=== PATIENT | male | born 1970 | race Caucasian/White ===

== ENCOUNTER 2023-06-07 07:38 | Outpatient (OUT) | payer OTHER, SELFPAY ==
--- NOTE | 2023-06-07 07:58 | XR_ITS ---
The [address] [address] Patient Name: DEZ CELAYA MRN: [id number] date: 1970 Sex: M Assigned Patient Location: US Current Patient Location: US Accession/Order Number: [id number] Exam Date: 06/07/2023 08:00 Report Date: 06/07/2023 08:34 At the request of: CLEO PICHARDO Procedure: XR chest 2V EXAM: Chest x-ray HISTORY: . History Of Testicular Cancer, History Of Renal Cell Cancer . COMPARISON: 04/05/2022 TECHNIQUE: Frontal and lateral chest FINDINGS: Heart and vascularity are unremarkable. Lungs are free of focal infiltrates. Nipple shadows overlie both lower lung draper. Early spondylosis of the spine is noted. There is accentuation on the normal kyphosis of the thoracic spine. XR/XR chest 2V IMPRESSION: 1 no acute heart or lung disease identified. Nipple shadows are noted overlying both lung draper. 2. Spondylosis of the spine. 3. There is accentuation of the normal kyphosis of the thoracic spine. Electronically authenticated by: ROLAND JOSEPH Date: 06/07/2023 08:34
--- NOTE | 2023-06-07 08:05 | US_ITS ---
The [address] [address] Patient Name: DEZ CELAYA MRN: [id number] date: 1970 Sex: M Assigned Patient Location: US Current Patient Location: Accession/Order Number: [id number] Exam Date: 06/07/2023 08:10 Report Date: 06/08/2023 07:26 At the request of: CLEO PICHARDO Procedure: US renal BI EXAMINATION: US renal BI HISTORY: History Of Renal Cell Cancer Z85.528 COMPARISON: No relevant comparison available. TECHNIQUE: Ultrasound examination was performed of the bladder. FINDINGS: Right Kidney: Contour deformity of the upper pole with an area of hyperechogenicity consistent with partial nephrectomy. No solid cortical mass, hydronephrosis or obstructing nephrolithiasis. The cortex measures 1.5 cm. Height: 4.1 cm Length: 12.3 cm Width: 5.9 cm Left Kidney: Normal in size, contour and echotexture. No solid cortical mass, hydronephrosis or obstructing nephrolithiasis Height: 8.4 cm Length: 13.7 cm Width: 6.6 cm Urinary bladder is distended with no wall thickening or mass. The bladder measures 14.0 x 10.9 x 11.0 cm with volume of 1173 mL US/US renal BI IMPRESSION: Contour deformity of hyperechogenicity upper pole right kidney, postsurgical changes from hysterectomy are favored Dilated urinary bladder with a volume of 1173 mL. Electronically authenticated by: ROLAND VELIZ Date: 06/08/2023 07:26
[2023-06-07 08:44] LABS: Basophils Absolute Auto 0.1 10^3/uL (0.0-0.1); Basophils Percent Auto 0.6 % (0.2-2.0); Eosinophils Absolute Auto 0.3 10^3/uL (0.0-0.7); Eosinophils Percent Auto 3.6 % (0.9-7.0); Hematocrit 44.3 % (42.0-54.0); Immature Granulocytes Abs Auto 0.02 10^3/uL (0.00-0.03); Immature Granulocytes Pct Auto 0.3 % (0.0-0.5); Lymphocytes Absolute Auto 1.6 10^3/uL (1.2-3.8); Lymphocytes Percent Auto 21.1 % (20.5-60.0); Mean Corpuscular HGB Conc 33.9 g/dL (29.9-35.2); Mean Corpuscular Volume 91.5 fL (80.0-94.0); Mean Platelet Volume 9.2 fL (9.5-13.5); Monocytes Absolute Auto 0.8 10^3/uL (0.3-0.8); Monocytes Percent Auto 10.2 % (1.7-12.0); Neutrophils Percent Auto 64.2 % (43.0-75.0); Platelet Count 300 10^3/uL (150-450); Red Blood Count 4.84 10^6/uL (4.70-6.10); White Blood Count 7.8 10^3/uL (4.0-11.0)
[2023-06-08 04:07] LABS: Testosterone 292 ng/dL (264-916)
== END 2023-06-07 07:39 | disposition home or self-care (01) ==
LOC: US 07:42
PROVIDERS: PCP Internal Medicine; Visit Provider Urology
DX: E29.1 Testicular hypofunction (principal); Z85.47 Personal history of malignant neoplasm of testis; Z85.528 Personal history of other malignant neoplasm of kidney; Z12.5 Encounter for screening for malignant neoplasm of prostate
CPT/HCPCS: 36415; 71046; 76775; 84403; 85025; G0103

== ENCOUNTER 2025-06-03 06:32 | Outpatient (OUT) | payer OTHER, SELFPAY ==
--- OUTSIDE RECORDS SUMMARY | 2025-06-03 06:36 | XMS_ITS | Encounter Summary ---
Author Organization [employer] s tem Address [facility]-[id number] [address] [place] [address] Care Team Providers Care Clinical Data Specialist Name Role Phone Isrrael Kaufman DO Primary Care Provider [phone] Encounter Details Date Type Department Care Team (Late st Contact Info) Description 04/29/2025 [facility] [address] [facility] [place] [id number] Carlos Chadwick CMA Social History Tobacco Use Types Packs/Day Years Used Date Smoking Tobacco: Former Cigars Q uit: 2012 Smokeless Tobacco: Never Alcohol Use Standard Drinks/Week Comments Yes 0 (1 standard drink = 0.6 oz pur e alcohol) occasional Social Connection and Isolat ion Panel [NHANES] Answer Date Recorded In a typical week, how many times do you talk on the phone with family, friends, or neighbors? More than three times a week 06/21/2022 How often do you get togethe r with friends or relatives? Three times a week 06/21/2022 How often do you attend chur ch or caodaism services? Never 06/21/2022 Do you belong to any clubs o r organizations such as confucianism groups, unions, fraternal or athletic groups, or school groups? No 06/21/2022 How often do you attend meet ings of the clubs or organizations you belong to? Never 06/21/2022 Are you , , di vorced, , never , or living with a partner? Never 06/21/2022 AUDIT-C Answer Date Recorded Q1: How often do you have a drink containing alc ohol? 2-4 times a month 06/21/2022 Q2: How many drinks containi ng alcohol do you have on a typical day when you are drinking? 1 or 2 06/21/2022 Q3: How often do you have si x or more drinks on one occasion? Less than monthly 06/21/2022 Overall Financial Resource Strain (CARDIA) Answe r Date Recorded How hard is it for you to pa y for the very basics like food, housing, medical care, and heating? Not hard at all 08/15/2024 PHQ-2 Answer Date Recorded Total Score 0 05/04/2024 [facility] ional [facility] - Occupational Stress Questionnaire Answer Date Recorded Do you feel stress - tense, restless, nervous, or anxious, or unable to sleep at night because your mind is troubled all the time - these days? Not at all 06/21/2022 Exercise Vital Sign Answer Date Recorde d On average, how many days pe r week do you engage in moderate to strenuous exercise (like a brisk walk)? 2 days 06/21/2022 On average, how many minutes do you engage in exercise at this level? 20 min 06/21/2022 PRAPARE - Transportation Answer Date Re corded In the past 12 months, has l ack of transportation kept you from medical appointments or from getting medications? No 07/28 In the past 12 months, has l ack of transportation kept you from meetings, work, or from getting things needed for daily living? No 08/15/2024 Housing Instability Answer Date Recorde d Are you worried or concerned that in the next two months you may not have stable housing that you own, rent or stay in as a part of a household? No 08/15/2024 Childcare Answer Date Recorded Do problems getting child ca re make it difficult for you to work or study? No 06/21/2022 Employment Answer Date Recorded Do you need help finding a [facility] career center and/or a training program? No 06/21/2022 Hunger Screening Answer Date Recorded Within the past 12 months we worried whether our food would run out before we got money to buy more. Never True 08/15/2024 Within the past 12 months th e food we bought just didn't last and we didn't have money to get more. Never True 08/15/2024 Purpose - Life Answer Date Recorded I have a purpose and direction in my life. Stron gly Agree 06/21/2022 Education Answer Date Recorded What is the highest level of school you have completed or the highest degree you have received? Associate degree: occupational, technical, or vocational program 06/21/2022 Sex and Gender Information Value Date Recorded Sex Assigned at Not on file Legal Sex Male 11:30 AM EDT Gender Identity Not on file Sexual Orientation Not on file documented as of this encounter Miscellaneous Notes * Telephone Encounter - Carlos Chadwick CMA - 04/29/2025 10:06 AM EDT ----- Message from Isrrael Kaufman DO sent at 05/04/2024 3:28 PM EDT ----- IFG/cholesterol recheck documented in this encounter Plan of Treatment Upcoming Encounters Date Type Department Care Team (Late st Contact Info) Description 07/22/2025 1:45 PM EDT Office Visit [facility] Internal Medicine - Family Medicine [address] [place] [address] Isrrael Kaufman DO [address] [place] [address] documented as of this encounter Visit Diagnoses Not on filedocumented in this encounter Additional Health Concerns Assessment Noted Time PHQ-9 Depression Total Score: 0 05/04/20 24 10:28 AM EDT documented as of this encounter Care Teams Clinical Data Specialist Relationship Specialty Start Date End Date Isrrael Kaufman DO [address] [place] [address] PCP - General Internal Medicine 09/25/21 documented as of this encounter
--- OUTSIDE RECORDS SUMMARY | 2025-06-03 06:36 | XMS_ITS | Encounter Summary ---
Author Organization [employer] [facility] tem Address [id number] [address] [place] [address] Care Team Providers Care Ic Design Engineer Name Role Phone Isrrael Kaufman DO Primary Care Provider [phone] Reason for Visit * Reason Comments Med Refill Encounter Details Date Type Department Care Team (Late st Contact Info) Description 04/27/2025 Refill [facility] Internal Medicine - Family Medicine [address] [place] [address] Isrrael Kaufman DO [address] [place] [address] Type 2 diabetes mellitus without complication, without long-term current use of insulin ([facility]) Social History Tobacco Use Types Packs/Day Years [...] often do you attend chur ch or baptism services? Never 06/21/2022 Do you belong to any clubs o r organizations such as gnosticism groups, unions, fraternal or athletic groups, or [...] Answer Date Recorded Total Score 0 05/04/2024 [facility] [place] of Occupat ional Health - Occupational Stress [...] Recorded Do you need help finding a [facility] career center and/or a training program? No [...] on file documented as of this encounter Plan of Treatment Upcoming Encounters Date Type Department Care Team (Late st Contact Info) Description 07/22/2025 1:45 PM EDT Office Visit [facility] Medicine - Family Medicine [address] [place] [address] Isrrael Kaufman DO [address] [place] [address] documented as of this encounter Visit Diagnoses Diagnosis Type 2 diabetes mellitus without complication, without long-term current use of insulin ([facility]) documented in this encounter Additional Health Concerns Assessment Noted Time PHQ-9 Depression Total Score: 0 05/04/20 24 10:28 AM EDT documented as of this encounter Care Teams Ic Design Engineer Relationship Specialty Start Date End Date Isrrael Kaufman DO [address] [place] [address] PCP - General Internal Medicine 09/25/21 documented as of this encounter
--- OUTSIDE RECORDS SUMMARY | 2025-06-03 06:36 | XMS_ITS | Encounter Summary ---
Author Organization [facility] tem Address [id number] [address] [place] [address] Care Team Providers Care Dental Ceramist Name Role Phone Isrrael Kaufman DO Primary Care Provider [phone] Encounter Details Date Type Department Care Team (Late st Contact Info) Description 01/31/2023 Orders Only [facility] Internal Medicine - Family Medicine [address] [place] [address] Isrrael Kaufman DO [address] [place] [address] Type 2 diabetes mellitus without complication, without long-term current use of insulin ([facility]) Social History Tobacco Use Types Packs/Day Years [...] often do you attend chur ch or presybeterian services? Never 06/21/2022 Do you belong to any clubs o r organizations such as presybeterian groups, unions, fraternal or athletic groups, or [...] care, and heating? Not hard at all 06/21/2022 PHQ-2 Answer Date Recorded Total Score 0 11/08/2022 [facility] of Occupat ional Health - Occupational [...] medical appointments or from getting medications? No 05/28 In the past 12 months, has l ack of transportation kept you from meetings, work, or from getting things needed for daily living? No 06/21/2022 Childcare Answer Date Recorded Do problems getting child ca re make it difficult for you to work or study? No 06/21/2022 Employment Answer Date Recorded Do you need help finding a l al career center and/or a training program? No 06/21/2022 Purpose - Life Answer Date Recorded I [...] Internal Medicine - Family Medicine [address] [place] [address] Isrrael Kaufman DO [address] [place] [address] documented as of this encounter Visit Diagnoses Diagnosis Type 2 diabetes mellitus without complication, without long-term current use of insulin ([facility]) documented in this encounter Additional Health Concerns Assessment Noted Time PHQ-9 Depression Total Score: 0 11/08/19 23 1:02 PM EST documented as of this encounter Care Teams Dental Ceramist Relationship Specialty Start Date End Date Isrrael Kaufman DO [address] [place] [address] PCP - General Internal Medicine 09/25/21 documented as of this encounter
--- OUTSIDE RECORDS SUMMARY | 2025-06-03 06:36 | XMS_ITS | Encounter Summary ---
Author Organization [employer] [facility] tem Address [facility]-[id number] [address] [place] [address] Care Team Providers Care Cable Technician Name Role Phone Isrrael Kaufman DO Primary Care Provider [phone] Reason for Visit * Reason Comments Med Change Request Encounter Details Date Type Department Care Team (Late st Contact Info) Description 09/21/2022 Refill [facility] Internal Medicine - Family Medicine [address] [place] [address] Isrrael Kaufman DO [address] [place] [address] Type 2 diabetes mellitus without complication, without long-term current use of insulin ([facility]) Social History Tobacco Use Types Packs/Day Years [...] often do you attend chur ch or orthodoxy services? Never 06/21/2022 Do you belong to any clubs o r organizations such as congregational groups, unions, fraternal or athletic groups, or [...] PHQ-2 Answer Date Recorded Total Score 0 06/21/2022 [facility] of Occupat ional Health - Occupational Stress [...] a purpose and direction in my life. Jeremy gly Agree 06/21/2022 Education Answer Date Recorded [...] encounter Miscellaneous Notes * Telephone Encounter - Isrrael Kaufman DO - 09/21/2022 5:26 PM EST Awaiting prior authorization documented in this encounter Plan of Treatment Upcoming Encounters Date Type Department Care Team (Late st Contact Info) Description 07/22/2025 1:45 PM EDT Office Visit [facility] Internal Medicine - Family Medicine [address] [place] [address] Isrrael Kaufman DO [address] [place] [address] documented as of this encounter Visit Diagnoses Diagnosis Type 2 diabetes mellitus without complication, without long-term current use of insulin ([facility]) documented in this encounter Additional Health Concerns Assessment Noted Time PHQ-9 Depression Total Score: 0 06/21/20 22 12:15 PM EDT documented as of this encounter Care Teams Cable Technician Relationship Specialty Start Date End Date Isrrael Kaufman DO [address] [place] [address] PCP - General Internal Medicine 09/25/21 documented as of this encounter
--- OUTSIDE RECORDS SUMMARY | 2025-06-03 06:36 | XMS_ITS | Clinical Summary ---
Author Organization [facility] [facility] tem Address [id number] [address] [place] [address] Care Team Providers Care Solution Coordinator Name Role Phone Isrrael Kaufman DO Primary Care Provider [phone] Allergies Active Allergy Reactions Criticality Noted Date Comments Amoxicillin-Pot Clavulanate Hives 02/02/20 13 Bee Venom Protein (Honey Bee) Bronchospasm High 08/28 Medications azelastine (ASTELIN) 137 mcg (0.1 %) nasal sprayIndications :Non-seasonal allergic rhinitis, unspecified trigger Administer 1 spray into each nostril in the morning and 1 spray before bedtime. Use in each nostril as directed. 30 mL 2 4 Active rosuvastatin (CRESTOR) 10 mg tabletIndication s:Type 2 diabetes mellitus without complication, without long-term current use of insulin ([facility]) TAKE 1 TABLET (10 MG TOTAL) BY MOUTH IN THE MORNING 90 tablet 1 5 Active Active Problems Problem Noted Date Diagnosed Date Type 2 diabetes mellitus wit hout complication, without long-term current use of insulin 11/08/2022 Polyp of sigmoid colon 01/22/2022 Allergic 12/21/2021 Overview (12/21/2021): bee stings Obesity 12/21/2021 Visual impairment 12/21/2021 Resolved Problems Problem Noted Date Diagnosed Date Resolved Date Colon cancer screening 11/19/202106/15 Encounters Date Type Department Care Team Description 04/29/2025 [facility]phone [facility] [address] [place] [address] Carlos Chadwick CMA 04/27/2025 Refill [facility] Internal Medicine - Family Medicine [address] [place] [address] Isrrael Kaufman, Type 2 diabetes mellitus without complication, without long-term current use of insulin ([facility]) from Last 3 Months Immunizations Immunization Administration Dates Next Due Zoster Vaccine Recombinant 08/17/2024,05/04/2024 Family History Medical History Relation Name Comments Diabetes Father jeanie haro Hypertension Mother yazmin haro Relation Name Status Comments Father jeanie haro Alive Mother yazmin haro Alive Social History Tobacco Use Types Packs/Day Years Used Date Smoking Tobacco: Former Cigars Q uit: 2012 Smokeless Tobacco: Never Tobacco Cessation:Counseling Given: Not Answered Alcohol Use Standard Drinks/Week Comments Yes 0 [...] often do you attend chur ch or muslim services? Never 06/21/2022 Do you belong to any clubs o r organizations such as jew groups, unions, fraternal or athletic groups, or [...] Answer Date Recorded Total Score 0 05/04/2024 [facility] of Occupat ional Health - Occupational [...] Recorded Do you need help finding a [facility] career center and/or a [...] on file Sexual Orientation Not on file Last Filed Vital Signs Vital Sign Reading Time Taken Comments Blood Pressure 124/76 05/04/2024 10:39 AM EDT Pulse 67 05/04/2024 10:28 AM EDT Temperature 36.7 C (98.1 F) 05/04/2024 10:28 AM EDT Respiratory Rate 20 03/14/2023 11:5 1 AM EDT Oxygen Saturation 96% 05/04/2024 10: 28 AM EDT Inhaled Oxygen Concentration - - Weight 83.4 kg (183 lb 12.8 oz) 024 10:28 AM EDT Height 172.7 cm (5' 8 ) 05/04/2024 10:2 8 AM EDT Body Mass Index 27.95 05/04/2024 10:28 AM EDT Plan of Treatment Upcoming Encounters Date Type Department Care Team (Late st Contact Info) Description 07/22/2025 1:45 PM EDT Office Visit [facility] Internal Medicine - Family Medicine [address] [place] [address] Isrrael Kaufman, DO [address] [place] [address] Health Maintenance Due Date Last Done Comments Diabetic Ophthalmology Exam 1970 DTaP,Tdap and Td Vaccines (2 - Td or Tdap) 02/01/2023 02/01/2013 Diabetic Foot Exam 03/14/2024 03/14/2023 COVID-19 Vaccine ( season) 2024 11/11/2021, 04/13/2021, 03/16/2021 Adult BMI Screening 05/04/2025 05/04/2024 Depression Screening 05/04/2025 05/04/2024 Tobacco Screening 05/04/2025 05/04/2024 Influenza Vaccine 05/27/2025 Statin Use: Diabetic 11/02/2025 11/02/2024 Colonoscopy 01/23/2032 01/22/2022, 01/22/2022 Zoster (Shingles) Vaccine Completed 08/17/2024, 05/2024 Medical Devices Not on file Procedures Procedure Name Priority Date/Time Associated Diagnosis Comments PROVATION COLONOSCOPY Routine 01/22/2022 12:56 PM EDT from Last 3 Months or Most Recently Relevant to Health Maintenance Results * Colonoscopy Report (01/22/2022 12:56 PM EDT) Narrative SYSTEMGENERATED, DOCUMENTATION - 01/22/2022 12:56 PM EDT This order has been auto-finalized for image and report archival in PACs. *For full report details, please reach out to your physician. Effective 02/10/21 this image will be visible to you in MyChart.* Isrrael Kaufman DO IMG OR IMG ORDERABLES Final Resu lt from Last 3 Months or Most Recently Relevant to Health Maintenance Insurance [employer] Care Teams Solution Coordinator Relationship Specialty Start Date End Date Isrrael Kaufman DO [address] [place] [address] PCP - General Internal Medicine 09/25/21
--- OUTSIDE RECORDS SUMMARY | 2025-06-03 06:36 | XMS_ITS | Encounter Summary ---
Author Organization [employer] tem Address [facility]-[id number] [address] [place] [address] Care Team Providers Care Blackener Name Role Phone Isrrael Kaufman DO Primary Care Provider [phone] Reason for Visit * Reason Onset Date Comments Med Refill 09/10/2022 Encounter Details Date Type Department Care Team (Late st Contact Info) Description 09/10/2022 [facility] [address] [place] [address] Jennifer Sandy CMA Type 2 diabetes mellitus without complication, without long-term current use of insulin ([facility]) Social History Tobacco Use Types Packs/Day Years [...] often do you attend chur ch or zoroastrian services? Never 06/21/2022 Do you belong to any clubs o r organizations such as restorationism groups, unions, fraternal or athletic groups, or [...] Answer Date Recorded Total Score 0 06/21/2022 [facility] [place] of Occupat ional Health - Occupational Stress [...] Do you need help finding a l ocal career center and/or a training program? No 06/21/2022 Purpose - Life Answer Date Recorded I have a purpose and direction in my life. Jeremy johnson Agree 06/21/2022 Education Answer Date Recorded What [...] Internal Medicine - Family Medicine [address] [place] [address] Isrrael Kaufman DO [address] [place] [address] documented as of this encounter Visit Diagnoses Diagnosis Type 2 diabetes mellitus without complication, without long-term current use of insulin ([facility]) documented in this encounter Additional Health Concerns Assessment Noted Time PHQ-9 Depression Total Score: 0 06/21/20 22 12:15 PM EDT documented as of this encounter Care Teams Blackener Relationship Specialty Start Date End Date Isrrael Kaufman DO [address] [place] [address] PCP - General Internal Medicine 09/25/21 documented as of this encounter
--- OUTSIDE RECORDS SUMMARY | 2025-06-03 06:36 | XMS_ITS | Encounter Summary ---
Author Organization [employer] [facility] tem Address [facility]-[id number] [address] [place] [address] Care Team Providers Care Line Fixer Name Role Phone Isrrael Kaufman DO Primary Care Provider [phone] Encounter Details Date Type Department Care Team (Late st Contact Info) Description 11/01/2022 Telephone [facility] Internal Medicine - Family Medicine [address] [place] [id number] Nighat Ruby CMA Social History Tobacco Use Types Packs/Day [...] often do you attend chur ch or rastafari services? Never 06/21/2022 Do you belong to any clubs o r organizations such as orthodox groups, unions, fraternal or athletic groups, or [...] Answer Date Recorded Total Score 0 06/21/2022 [facility] of Occupat ional Health - Occupational Stress [...] Recorded Do you need help finding a [facility] and/or a training program? No [...] encounter Miscellaneous Notes * Telephone Encounter - Nighat Ruby CMA - 11/01/2022 8:32 AM EST Pt has appt coming up and thought he had lab work due but went to hospital and they had no orders. [place] of [place], so he will not be back in time to get labs done. Can we do at appointment,or should we move appt out further and order labs? * Telephone Encounter - Isrrael Kaufman DO - 11/01/2022 8:32 AM EST We will just do them at the appointment. However, whoever schedule the appointment needs to make sure they look the providers know that we need to send in orders ahead of time. * Telephone Encounter - Sade Weems - 11/01/2022 8:32 AM EST I scheduled this appt 08-02-22 when he was leaving after seeing you for his diabetic check up. Are you able to put in orders that day for a future date? I didn't think you could. So, I normally tell the patient to call a week ahead of the appt to request lab orders. I even write it on their paper that has the appt on it. I don't know what more I can do. documented in this encounter Plan of Treatment Upcoming Encounters Date Type Department Care Team (Late st Contact Info) Description 07/22/2025 1:45 PM EDT Office Visit [facility] Internal Medicine - Family Medicine [address] [place] [address] Isrrael Kaufman DO [address] [facility] [address] documented as of this encounter Visit Diagnoses Not on filedocumented in this encounter Additional Health Concerns Assessment Noted Time PHQ-9 Depression Total Score: 0 06/21/20 22 12:15 PM EDT documented as of this encounter Care Teams Line Fixer Relationship Specialty Start Date End Date Isrrael Kaufman DO [address] [place] [address] PCP - General Internal Medicine 09/25/21 documented as of this encounter
--- OUTSIDE RECORDS SUMMARY | 2025-06-03 06:36 | XMS_ITS | Encounter Summary ---
Author Organization [employer] [facility] tem Address [facility] [id number] [address] [place] [address] Care Team Providers Care Construction Accountant Name Role Phone Isrrael Kaufman DO Primary Care Provider [phone] Encounter Details Date Type Department Care Team (Late st Contact Info) Description 09/22/2022 Orders Only [facility] Internal Medicine - Family Medicine [address] [place] [address] Isrrael Kaufman DO [address] [place] [address] Type 2 diabetes mellitus without complication, without long-term current use of insulin ([facility]) (Primary Dx) Social History Tobacco Use Types Packs/Day Years [...] often do you attend chur ch or yazidi services? Never 06/21/2022 Do you belong to any clubs o r organizations such as lutheran groups, unions, fraternal or athletic groups, or [...] Answer Date Recorded Total Score 0 06/21/2022 [facility] of Occupat ional Health - Occupational [...] Internal Medicine - Family Medicine [address] [place] [address] Isrrael Kaufman DO [address] [place] [address] documented as of this encounter Visit Diagnoses Diagnosis Type 2 diabetes mellitus without complication, without long-term current use of insulin ([facility])- Primary documented in this encounter Additional Health Concerns Assessment Noted Time PHQ-9 Depression Total Score: 0 06/21/20 22 12:15 PM EDT documented as of this encounter Care Teams Construction Accountant Relationship Specialty Start Date End Date Isrrael Kaufman DO [address] [place] [address] PCP - General Internal Medicine 09/25/21 documented as of this encounter
--- OUTSIDE RECORDS SUMMARY | 2025-06-03 06:36 | XMS_ITS | Encounter Summary ---
Author Organization [employer] s tem Address [facility] [place]-[id number] [address] [place] [address] Care Team Providers Care Tariff Clerk Name Role Phone Isrrael Kaufman DO Primary Care Provider [phone] Reason for Visit * Reason Onset Date Comments Med Refill 09/14/2022 Encounter Details Date Type Department Care Team (Late st Contact Info) Description 09/14/2022 [facility] [address] [facility] [place] [address] Teri Ortega MA Type 2 diabetes mellitus without complication, without long-term current use of insulin ([facility]) Social History Tobacco Use Types [...] often do you attend chur ch or alevism services? Never 06/21/2022 Do you belong to any clubs o r organizations such as shinto groups, unions, fraternal or athletic groups, or [...] Answer Date Recorded Total Score 0 06/21/2022 [facility] of Occupat ional Health - Occupational Stress [...] Internal Medicine - Family Medicine [address] [place] [address] Isrrael Kaufman DO [address] [place] [address] documented as of this encounter Visit Diagnoses Diagnosis Type 2 diabetes mellitus without complication, without long-term current use of insulin ([facility]) documented in this encounter Additional Health Concerns Assessment Noted Time PHQ-9 Depression Total Score: 0 06/21/20 22 12:15 PM EDT documented as of this encounter Care Teams Tariff Clerk Relationship Specialty Start Date End Date Isrrael Kaufman DO [address] [place] [address] PCP - General Internal Medicine 09/25/21 documented as of this encounter
--- OUTSIDE RECORDS SUMMARY | 2025-06-03 06:36 | XMS_ITS | Encounter Summary ---
Author Organization [employer] [facility] tem Address [facility]-[id number] [address] [place] [address] Care Team Providers Care Assistant Associate Full Professor Name Role Phone Isrrael Kaufman DO Primary Care Provider [phone] Encounter Details Date Type Department Care Team (Late st Contact Info) Description 06/07/2023 Orders Only [facility] Internal Medicine - Family Medicine [address] [place] [address] Isrrael Kaufman DO [address] [place] [address] Social History Tobacco Use Types Packs/Day Years [...] often do you attend chur ch or denominational services? Never 06/21/2022 Do you belong to any clubs o r organizations such as sikh groups, unions, fraternal or athletic groups, or [...] PHQ-2 Answer Date Recorded Total Score 0 03/14/2023 [facility] of Occupat ional [...] got money to buy more. Never True 03/14/2023 Within the past 12 months th e food we bought just didn't last and we didn't have money to get more. Never True 03/14/2023 Purpose - Life Answer Date Recorded I [...] Internal Medicine - Family Medicine [address] [place] [address] Isrrael Kaufman DO [address] [place], [place] [id number] documented as of this encounter Procedures Procedure Name Priority Date/Time Associated Diagnosis Comments XR CHEST 2 VWS Routine 06/07/2023 10:46 AM EDT documented in this encounter Results * X-ray chest 2 views (06/07/2023 10:46 AM EDT) Anatomical Region Laterality Modality Body, Chest N/A Computed Radiogr aphy us Scanning Provider External IMG DIAGNOSTIC IMAGIN G ORDERABLES Final Result documented in this encounter Visit Diagnoses Not on filedocumented in this encounter Additional Health Concerns Assessment Noted Time PHQ-9 Depression Total Score: 0 03/14/20 23 11:49 AM EDT documented as of this encounter Care Teams Assistant Associate Full Professor Relationship Specialty Start Date End Date Isrrael Kaufman DO [address] [place] [address] PCP - General Internal Medicine 09/25/21 documented as of this encounter
--- OUTSIDE RECORDS SUMMARY | 2025-06-03 06:36 | XMS_ITS | Encounter Summary ---
Author Organization [employer] [facility] tem Address [id number] [address] [place] [address] Care Team Providers Care Air Hole Driller Name Role Phone Isrrael Kaufman DO Primary Care Provider [phone] Encounter Details Date Type Department Care Team (Late st Contact Info) Description 10/10/2023 Orders Only [facility] Internal Medicine - Family Medicine [address] [place] [address] Isrrael Kaufman DO [address] [place] [address] Social History Tobacco Use Types Packs/Day Years [...] any clubs o r organizations such as baptism groups, unions, fraternal or athletic groups, or [...] care, and heating? Not hard at all 10/10/2023 PHQ-2 Answer Date Recorded Total Score 0 03/14/2023 [facility] of Occupat ional Health - Occupational [...] medical appointments or from getting medications? No 09/26 In the past 12 months, has l ack of transportation kept you from meetings, work, or from getting things needed for daily living? No 10/10/2023 Housing Instability Answer Date Recorde d Are you worried or concerned that in the next two months you may not have stable housing that you own, rent or stay in as a part of a household? No 10/10/2023 Childcare Answer Date Recorded Do problems getting child ca re make it difficult for you to work or study? No 06/21/2022 Employment Answer Date Recorded Do you need help finding a [facility] career [facility] and/or a training program? No 06/21/2022 Hunger Screening Answer Date Recorded Within the past 12 months we worried whether our food would run out before we got money to buy more. Never True 10/10/2023 Within the past 12 months th e food we bought just didn't last and we didn't have money to get more. Never True 10/10/2023 Purpose - Life Answer Date Recorded I [...] Internal Medicine - Family Medicine [address] [place] [address] Isrrael Kaufman DO [address] [place] [address] documented as of this encounter Visit Diagnoses Not on filedocumented in this encounter Additional Health Concerns Assessment Noted Time PHQ-9 Depression Total Score: 0 03/14/20 23 11:49 AM EDT documented as of this encounter Care Teams Air Hole Driller Relationship Specialty Start Date End Date Isrrael Kaufman DO [address] [place] [address] PCP - General Internal Medicine 09/25/21 documented as of this encounter
--- OUTSIDE RECORDS SUMMARY | 2025-06-03 06:36 | XMS_ITS | Encounter Summary ---
Author Organization [facility] tem Address [facility] [place]-[id number] [address] [place] [address] Care Team Providers Care Open Soaper Tender Name Role Phone Isrrael Kaufman DO Primary Care Provider Encounter Details Date Type Department Care Team (Late st Contact Info) Description 11/08/2022 Orders Only [facility] Internal Medicine - Family Medicine [address] [place] [address] Isrrael Kaufman DO [address] [place] [address] Type 2 diabetes mellitus without complication, without long-term current use of insulin ([facility]) (Primary Dx) Social History Tobacco Use Types [...] often do you attend chur ch or anglican services? Never 06/21/2022 Do you belong to [...] Answer Date Recorded Total Score 0 11/08/2022 [facility] of Occupat ional Health - Occupational Stress [...] on file Sexual Orientation Not on file COVID-19 Exposure Response Date Recorded In the last month, have you been in contact with someone who was confirmed or suspected to have Coronavirus / COVID-19? No / Unsure 11/08/2022 12:48 PM EST documented as of this encounter Plan of Treatment Upcoming Encounters Date Type Department Care Team (Late st Contact Info) Description 07/22/2025 1:45 PM EDT Office Visit [facility] Internal Medicine - Family Medicine [address] [place] [address] Isrrael Kaufman DO [address] [place] [address] documented as of this encounter Visit Diagnoses Diagnosis Type 2 diabetes mellitus without complication, without long-term current use of insulin ([facility])- Primary documented in this encounter Additional Health Concerns Assessment Noted Time PHQ-9 Depression Total Score: 0 11/08/19 23 1:02 PM EST documented as of this encounter Care Teams Open Soaper Tender Relationship Specialty Start Date End Date Isrrael Kaufman DO [address] [place] [address] PCP - General Internal Medicine 09/25/21 documented as of this encounter
--- OUTSIDE RECORDS SUMMARY | 2025-06-03 06:36 | XMS_ITS | Encounter Summary ---
Author Organization [facility] Address [facility]-[id number] [address] [place] [address] Care Team Providers Care Customs Collector Name Role Phone Isrrael Kaufman DO Primary Care Provider [phone] Encounter Details Date Type Department Care Team (Late st Contact Info) Description 06/09/2023 Orders Only [facility] Internal Medicine - Family Medicine [address] [place] [address] External, Scanning Provider Social History Tobacco Use Types Packs/Day Years [...] often do you attend chur ch or congregational services? Never 06/21/2022 Do you belong to any clubs o r organizations such as methodist groups, unions, fraternal or athletic groups, or [...] Answer Date Recorded Total Score 0 03/14/2023 [facility] of Occupat ional Health - Occupational Stress [...] Recorded Do you need help finding a [facility] career center and/or a training program? [...] Internal Medicine - Family Medicine [address] [place] [address] Isrrael Kaufman DO [address] [facility] [place] [address] documented as of this encounter Procedures Procedure Name Priority Date/Time Associated Diagnosis Comments US RETROPERITONEAL LIMITED Routine 06/09 9:51 AM EDT documented in this encounter Results * Ultrasound retroperitoneal limited (06/09/2023 9:51 AM EDT) Anatomical Region Laterality Modality Body Ultrasound us Scanning Provider External IMG US ORDERABLES Fin al Result documented in this encounter Visit Diagnoses Not on filedocumented in this encounter Additional Health Concerns Assessment Noted Time PHQ-9 Depression Total Score: 0 03/14/20 23 11:49 AM EDT documented as of this encounter Care Teams Customs Collector Relationship Specialty Start Date End Date Isrrael Kaufman DO [address] [place] [address] PCP - General Internal Medicine 09/25/21 documented as of this encounter
--- OUTSIDE RECORDS SUMMARY | 2025-06-03 06:36 | XMS_ITS | Encounter Summary ---
Author Organization [employer] tem Address [facility]-[id number] [address] [place] [address] Care Team Providers Care Steward/Stewardess Tourist Class Name Role Phone Isrrael Kaufman DO Primary Care Provider [phone] Reason for Visit * Reason Onset Date Comments Med Refill 09/28/2022 Encounter Details Date Type Department Care Team (Late st Contact Info) Description 09/28/2022 [facility] [address] [place] [address] Jennifer Sandy CMA Type 2 diabetes mellitus without complication, without long-term current use of insulin ([facility]) Social History Tobacco Use Types Packs/Day Years [...] often do you attend chur ch or judaism services? Never 06/21/2022 Do you belong to any clubs o r organizations such as christian groups, unions, fraternal or athletic groups, or [...] Answer Date Recorded Total Score 0 06/21/2022 [facility] [place] of Occupat ional Health - Occupational Stress [...] Internal Medicine - Family Medicine [address] [place] [address] Isrrael Kaufman DO [address] [place] [address] documented as of this encounter Visit Diagnoses Diagnosis Type 2 diabetes mellitus without complication, without long-term current use of insulin ([facility]) documented in this encounter Additional Health Concerns Assessment Noted Time PHQ-9 Depression Total Score: 0 06/21/20 22 12:15 PM EDT documented as of this encounter Care Teams Steward/Stewardess Tourist Class Relationship Specialty Start Date End Date Isrrael Kaufman DO [address] [place] [address] PCP - General Internal Medicine 09/25/21 documented as of this encounter
--- OUTSIDE RECORDS SUMMARY | 2025-06-03 06:36 | XMS_ITS | Encounter Summary ---
Author Organization [employer] tem Address [facility]-[id number] [address] [place] [address] Care Team Providers Care Trade Sales Assistant Name Role Phone Isrrael Kaufman DO Primary Care Provider [phone] Encounter Details Date Type Department Care Team (Late st Contact Info) Description 09/01/2022 [facility] [address] [place] [address] Teri Ortega MA Social History Tobacco Use Types Packs/Day Years [...] often do you attend chur ch or moravian services? Never 06/21/2022 Do you belong to any clubs o r organizations such as adventist groups, unions, fraternal or athletic groups, or [...] Answer Date Recorded Total Score 0 06/21/2022 [facility] of Occupat ional Health - Occupational [...] have Coronavirus / COVID-19? No / Unsure 08/02/2022 1:53 PM EST documented as of this encounter Miscellaneous Notes * Telephone Encounter - Teri Ortega MA - 09/01/2022 4:36 PM EST Patient called and said he has been doing well with the Ozempic and was wondering if you can send ascript to [facility] in [place]? documented in this encounter Plan of Treatment Upcoming Encounters Date Type Department Care Team (Late st Contact Info) Description 07/22/2025 1:45 PM EDT Office Visit [facility] Internal Medicine - Family Medicine [address] [place] [address] Isrrael Kaufman DO [address] [place] [address] documented as of this encounter Visit Diagnoses Not on filedocumented in this encounter Additional Health Concerns Assessment Noted Time PHQ-9 Depression Total Score: 0 06/21/20 22 12:15 PM EDT documented as of this encounter Care Teams Trade Sales Assistant Relationship Specialty Start Date End Date Isrrael Kaufman DO [address] [place] [address] PCP - General Internal Medicine 09/25/21 documented as of this encounter
--- OUTSIDE RECORDS SUMMARY | 2025-06-03 06:36 | XMS_ITS | Encounter Summary ---
Author Organization [employer] [facility] tem Address [facility]-[id number] [address] [place] [address] Care Team Providers Care Speed Reading Teacher Name Role Phone Isrrael Kaufman DO Primary Care Provider [phone] Reason for Visit * Reason Comments Med Change Request Encounter Details Date Type Department Care Team (Late st Contact Info) Description 09/14/2022 Refill [facility] Internal Medicine - Family Medicine [address] [place] [address] Isrrael Kaufman DO [address] [place] [address] Type 2 diabetes mellitus without complication, without long-term current use of insulin ([facility]) Social History Tobacco Use Types Packs/Day Years [...] often do you attend chur ch or mu-ism services? Never 06/21/2022 Do you belong to any clubs o r organizations such as uatsdin groups, unions, fraternal or athletic groups, or [...] Answer Date Recorded Total Score 0 06/21/2022 [facility] [place] of Occupat ional Health - Occupational Stress [...] encounter Miscellaneous Notes * Telephone Encounter - Luz Maria Durán MA - 09/14/2022 6:14 PM EST Started pa for ozempic, per Dr Kaufman request * Telephone Encounter - Luz Maria Durán MA - 09/14/2022 6:14 PM EST Started this and they requested more info, sent last office note and A1C. documented in this encounter Plan of Treatment Upcoming Encounters Date Type Department Care Team (Late st Contact Info) Description 07/22/2025 1:45 PM EDT Office Visit [facility] Internal Medicine - Family Medicine [address] [place] [address] Isrrael Kaufman DO [address] [place] [address] documented as of this encounter Visit Diagnoses Diagnosis Type 2 diabetes mellitus without complication, without long-term current use of insulin ([facility]) documented in this encounter Additional Health Concerns Assessment Noted Time PHQ-9 Depression Total Score: 0 06/21/20 22 12:15 PM EDT documented as of this encounter Care Teams Speed Reading Teacher Relationship Specialty Start Date End Date Isrrael Kaufman DO [address] [place] [address] PCP - General Internal Medicine 09/25/21 documented as of this encounter
--- OUTSIDE RECORDS SUMMARY | 2025-06-03 06:36 | XMS_ITS | Encounter Summary ---
Author Organization [employer] [facility] tem Address [id number][id number] [address] [place] [address] Care Team Providers Care Budget Coordinator Name Role Phone Isrrael Kaufman DO Primary Care Provider [phone] Encounter Details Date Type Department Care Team (Late st Contact Info) Description 05/05/2024 Orders Only [facility] Internal Medicine - Family Medicine [address] [place] [address] Isrrael Kaufman DO [address] [place] [address] Social History Tobacco Use Types Packs/Day Years [...] often do you attend chur ch or scientologist services? Never 06/21/2022 Do you belong to any clubs o r organizations such as mu-ism groups, unions, fraternal or athletic groups, or [...] Answer Date Recorded Total Score 0 05/04/2024 [facility] [place] of Occupat ional Health - Occupational Stress [...] Recorded Do you need help finding a [facility] and/or a training program? No 06/21/2022 Hunger Screening Answer Date Recorded Within the past 12 months we worried whether our food would run out before we got money to buy more. Never True 05/04/2024 Within the past 12 months th e food we bought just didn't last and we didn't have money to get more. Never True 05/04/2024 Purpose - Life Answer Date Recorded I [...] Internal Medicine - Family Medicine [address] [place] [address] Isrrael Kaufman DO [address] [place] [address] documented as of this encounter Visit Diagnoses Not on filedocumented in this encounter Additional Health Concerns Assessment Noted Time PHQ-9 Depression Total Score: 0 05/04/20 24 10:28 AM EDT documented as of this encounter Care Teams Budget Coordinator Relationship Specialty Start Date End Date Isrrael Kaufman DO [address] [place] [address] PCP - General Internal Medicine 09/25/21 documented as of this encounter
--- NOTE | 2025-06-03 06:58 | US_ITS ---
The [address] [address] Patient Name: DEZ CELAYA MRN: [id number] date: 1970 Sex: M Assigned Patient Location: US Current Patient Location: US Accession/Order Number: [id number] Exam Date: 06/03/2025 07:00 Report Date: 06/03/2025 09:26 At the request of: CLEO PICHARDO MD Procedure: US renal BI BILATERAL RENAL AND BLADDER ULTRASOUND CLINICAL HISTORY: History of renal cell carcinoma and testicular cancer. Partial right nephrectomy COMPARISON: 06/07/2023 Estimation of renal size is approximately 11.1 cm on the right and 13.5 cm on the left. Scarring is again visualized at the upper pole on the right. No shadowing calculi or hydronephrosis are identified. No renal mass lesions were imaged. There is no perinephric fluid. The urinary bladder is partially distended with a volume of 163 mL. No contour or intraluminal abnormalities are seen. US/US renal BI IMPRESSION: NO OBSTRUCTIVE UROPATHY OR ACUTE FINDINGS. Impression dictated by: Lauern Riddle M.D. 06/03/2025 9:26 AM Dictation Location: [place] [address] Electronically authenticated by: [id number] Y Date: 06/03/2025 09:26
--- NOTE | 2025-06-03 07:02 | XR_ITS ---
The [address] [address] Patient Name: DEZ CELAYA MRN: [id number] date: 1970 Sex: M Assigned Patient Location: US Current Patient Location: US Accession/Order Number: [id number] Exam Date: 06/03/2025 06:58 Report Date: 06/03/2025 09:24 At the request of: CLEO PICHARDO MD Procedure: XR chest 2V PA AND LATERAL CHEST: CLINICAL HISTORY: History of testicular cancer, History of renal cell cancer COMPARISON: 06/07/2023 There is no developing consolidation, effusion or pneumothorax. The cardiac, hilar and mediastinal silhouettes are stable. There is no vascular congestion. The visualized bony thorax is intact. Degenerative changes are present at the spine. XR/XR chest 2V IMPRESSION: NO ACUTE CARDIOPULMONARY ABNORMALITY OR INTERVAL CHANGE. Impression dictated by: Lauren Riddle M.D. 06/03/2025 9:24 AM Dictation Location: [place] [address] Electronically authenticated by: [id number] Y Date: 06/03/2025 09:24
[2025-06-03 07:29] LABS: Hematocrit 44.3 % (42.0-54.0); Hemoglobin 15.4 g/dL (14.0-18.0); Immature Granulocytes Abs Auto 0.01 10^3/uL (0.00-0.03); Immature Granulocytes Pct Auto 0.1 % (0.0-0.5); Lymphocytes Absolute Auto 1.3 10^3/uL (1.2-3.8); Mean Corpuscular HGB Conc 34.8 g/dL (29.9-35.2); Mean Corpuscular Hemoglobin 32.6 pg (25.9-34.0); Mean Corpuscular Volume 93.7 fL (80.0-94.0); Platelet Count 282 10^3/uL (150-450); Red Blood Count 4.73 10^6/uL (4.70-6.10); White Blood Count 6.9 10^3/uL (4.0-11.0)
[2025-06-03 08:00] LABS: Prostate Specific Antigen Dx 0.33 ng/mL (<=4.00)
[2025-06-04 08:08] LABS: AFP, Serum, Tumor Marker <1.8 ng/mL (0.0-8.4)
== END 2025-06-03 06:33 | disposition home or self-care (01) ==
LOC: US 06:34
PROVIDERS: PCP Internal Medicine; Visit Provider Urology
DX: E29.1 Testicular hypofunction (principal); Z85.47 Personal history of malignant neoplasm of testis; Z85.528 Personal history of other malignant neoplasm of kidney
CPT/HCPCS: 36415; 71046; 76775; 82105; 83615; 84153; 84403; 84702; 85025